=== PATIENT | female | born 1950 | race Caucasian/White ===

== ENCOUNTER → 2016-10-20 | Outpatient (CLI) | payer MEDICARE | END | disposition home or self-care (01) | LOC: GMA 11:27 | PROVIDERS: ATTEND Nurse Practitioner Family | DX: R53.83 Other fatigue (principal) ==

== ENCOUNTER → 2016-11-27 | Outpatient (CLI) | payer MEDICARE ==
--- NOTE | 2016-11-28 10:13 | US ---
EXAM DESCRIPTION: Soft Tissue, head/neck CLINICAL HISTORY: 66 years, Female, THY NODULE COMPARISON: None available FINDINGS: Right lobe of thyroid 3.3 x 1.3 x 1.4 cm. Left lobe 4.1 x 1.6 x 1.1 cm. Isthmus 1.2 mm. Nodule right lobe isoechoic inferior medially measures 9 x 7 x 6 mm. Slightly smaller nodule midportion 3 x 3 x 2 mm. On the left side, isoechoic to slightly hyperechoic smooth nodule 1.7 x 1.0 x 0.9 cm. In the mid to lower portion. Small nodule slightly slightly more superiorly midportion 5 x 6 x 4 mm. IMPRESSION: Multiple nodules present, almost certainly benign. Largest nodule is inferiorly mid and lower left lobe. This large nodule does not display worrisome calcifications or irregular borders. Follow-up study to confirm stability can be obtained, if desired Electronically signed by: William Sifuentes MD 11/28/2016 10:11 AM CDT
== END | disposition home or self-care (01) ==
LOC: US 13:52
PROVIDERS: ATTEND Family Medicine
DX: E04.1 Nontoxic single thyroid nodule (principal)

== ENCOUNTER → 2016-12-11 | Outpatient (CLI) | payer MEDICARE | END | disposition home or self-care (01) | LOC: MAMMO 15:48 | PROVIDERS: ATTEND Family Medicine | DX: Z12.31 Encounter for screening mammogram for malignant neoplasm of breast (principal) | CPT/HCPCS: 77063; G0202 ==

== ENCOUNTER → 2017-12-23 | Outpatient (CLI) | payer MEDICARE | LOC: GMAHI 14:32 | PROVIDERS: ATTEND Nurse Practitioner Family | DX: E04.1 Nontoxic single thyroid nodule (principal) ==

== ENCOUNTER → 2018-02-09 | Outpatient (CLI) | payer MEDICARE ==
--- NOTE | 2018-02-10 17:00 | MAM ---
EXAM DESCRIPTION: 3D Screening BILATERAL : Digital Mammography. CLINICAL HISTORY: 67 years Female SCREENING . No personal or family history of breast cancer. No complaints. Childbirth. Postmenopausal 16 years. HRT 5 or more years ago. Cyst aspiration in the right breast. Lifetime risk of developing breast cancer (Tyrer-Cuzick model)(%): 5.0. COMPARISON: Bilateral screening digital breast tomosynthesis 12/11/2016. TECHNIQUE: Bilateral CC and MLO projection full-field images, Digital tomosynthesis mammographic technique. Bilateral digital 2-D full-field MLO images. CAD not utilized. FINDINGS: The breast parenchymal density pattern is: Heterogeneously dense breast tissue, which may obscure small masses. No skin thickening or nipple retraction. Bilateral solitary microcalcifications. Right axillary lymph node. No new focal, stellate mass or density, focal asymmetry , and no suspicious microcalcifications bilaterally. Stable mammograms compared to prior study. IMPRESSION: Benign exam. BIRAD CATEGORY: 2 BENIGN FINDINGS. RECOMMENDATIONS: FOLLOW UP: Routine digital bilateral screening, one year interval from January 2018. Written communication explaining the IMPRESSION and follow-up, will be mailed to the patient and referring health care provider. According to the [employer], yearly mammograms are recommended starting at age 40 and continuing as long as a woman is in good health. Any breast change noted on a breast self-exam should be reported promptly to the patient's healthcare provider. Breast MRI is recommended for women with an approximately 20-25% or greater lifetime risk of breast cancer, including women with a strong family history of breast or ovarian cancer and women who have been treated for Hodgkin's disease. A negative mammographic report should not delay tissue diagnosis in patients with significant clinical history or physical findings. Extremely dense breast tissue limits the sensitivity of digital mammography. Electronically signed by: Kirby Dow MD 02/10/2018 4:59 PM CDT
== END ==
LOC: MAMMO 11:30
PROVIDERS: ATTEND Family Medicine
DX: Z12.31 Encounter for screening mammogram for malignant neoplasm of breast (principal)